=== PATIENT | female | born 1985 | race Two or more races ===

== ENCOUNTER 2018-04-14 18:35 | Inpatient (IN) | payer OTHER ==
[~2018-04-14] VITALS: Ht 152.4 cm; Wt 66.2 kg
[2018-04-24] MEDS ORDERED: PRENATAL TABLE1 EAC2 PO (18:02)
== END 2018-04-28 18:06 | disposition home or self-care (01) | DRG 807 ==
LOC: LDR 04-24 17:16 → OB/GYN 04-25 18:04 → LDR 04-26 13:38 → OB/GYN 04-28 18:06
PROC: 4A1HXCZ Monitoring of Products of Conception, Cardiac Rate, External Approach (ICD-10-PCS; 2018-04-24)
PROC: 10E0XZZ Delivery of Products of Conception, External Approach (ICD-10-PCS; principal; 2018-04-25)
PROC: 0W8NXZZ Division of Female Perineum, External Approach (ICD-10-PCS; 2018-04-25)
PROC: 4A033R1 Measurement of Arterial Saturation, Peripheral, Percutaneous Approach (ICD-10-PCS; 2018-04-25)
DX: O80 Encounter for full-term uncomplicated delivery (principal); Z37.0 Single live birth; Z3A.39 39 weeks gestation of pregnancy